=== PATIENT | female | born 1995 | race Hispanic/Latino ===

== ENCOUNTER 2019-07-17 12:19 | Outpatient (CLI) | payer OTHER ==
[2019-07-17 18:17] LABS: SARS-CoV-2 MS2 Positive; SARS-CoV-2 N Gene Negative; SARS-CoV-2 S Gene Negative; SARS-CoV-2 orf1ab Negative
== END 2019-07-17 12:20 | disposition home or self-care (01) ==
LOC: ERS 12:19
PROVIDERS: ATTEND Family Medicine
DX: Z20.828 Contact with and (suspected) exposure to other viral communicable diseases (principal)
CPT/HCPCS: 87635; U0003

== ENCOUNTER 2019-07-17 20:15 | Inpatient (IN) | payer OTHER, MEDICAID ==
[2019-07-17 21:11] VITALS: BMI 28.4
[2019-07-17] MEDS ORDERED: hydrALAZINE 20 MG/ML VIAL SLOW IVP PRN (21:50)
[2019-07-17] MEDS ORDERED: Diphenoxylate HCl/Atropine Tablet PO PRN (21:50)
[2019-07-17] MEDS ORDERED: Promethazine HCl 25 MG/ML VIAL IM PRN (21:50)
[2019-07-17] MEDS ORDERED: Carboprost 250 MCG/ML AMP IM PRN (21:50)
[2019-07-17] MEDS ORDERED: Lidocaine 1% (PF) 30 ML VIAL SC PRN (21:50)
[2019-07-17] MEDS ORDERED: Ondansetron PF 4 MG/2 ML Vial IVP PRN (21:50)
[2019-07-17] MEDS ORDERED: Docusate 100 MG CAP PO PRN (21:50)
[2019-07-17] MEDS ORDERED: HYDROcodone/Acetaminophen 5/325 mg Tablet PO PRN (21:50)
[2019-07-17] MEDS ORDERED: Ibuprofen 800 MG TAB PO PRN (21:50)
[2019-07-17] MEDS ORDERED: Misoprostol 200 MCG TAB PR PRN (21:50)
[2019-07-17] MEDS ORDERED: Methylergonovine 0.2 MG/ML VIAL IM PRN (21:50)
[2019-07-17] MEDS: Lactated Ringer's 1,000 ML IV SCH (22:00)
[2019-07-17] MEDS ORDERED: NS w/ Oxytocin 10 units 500 ML IV SCH (22:00)
[2019-07-17 22:10] LABS: Hemoglobin 12.1 g/dL (12.0-16.0); Mean Corpuscular HGB CONC 33.3 g/dL (32.0-36.0); Mean Corpuscular Hemoglobin 31.1 pg (27.0-31.0); Mean Corpuscular Volume 93.5 fL (78.0-98.0); Mean Platelet Volume 9.7 fL (7.4-10.4); Platelet Count 203 thou/uL (130-400); RBC Distribution Width 12.5 % (11.5-14.5); Red Blood Cell (RBC) Count 3.89 mill/uL (4.20-5.40); White Blood Cell (WBC) Count 10.4 thou/uL (4.8-10.8)
[2019-07-17] MEDS: Misoprostol 100 MCG TAB PO SCH (22:20)
[2019-07-17 22:48] LABS: HBSAg Index 0.16 S/CO (0-0.99); Hep B Surf Ag Non-Reactive S/CO (NonReactive); Syphilis Antibody Nonreactive (Nonreactive); Syphilis Antibody Index 0.03 S/CO (<1.00 Non-Reactive)
[2019-07-17] MEDS: NS w/ Oxytocin 10 units 500 ML IV SCH (23:36)
[2019-07-18] MEDS: Misoprostol 100 MCG TAB PO SCH (02:10)
[2019-07-18] MEDS: Butorphanol Tartrate 1 MG/ML VIAL SLOW IVP PRN ×3 (04:00→07:54)
[2019-07-18] MEDS: Lactated Ringer's 1,000 ML IV SCH ×3 (05:00→15:23)
[2019-07-18] MEDS ORDERED: Fentanyl 4 mcg/Bup 0.1% Cadd 100 ML ONE ×2 (08:59→15:15)
[2019-07-18] MEDS ORDERED: Lactated Ringer's 500 ML IV PRN (09:32)
[2019-07-18] MEDS ORDERED: Naloxone HCl 0.4 mg/ml Vial IVP PRN ×2 (09:32)
[2019-07-18] MEDS ORDERED: Promethazine HCl 25 MG/ML VIAL IM PRN ×2 (09:32→22:06)
[2019-07-18] MEDS ORDERED: Acetaminophen 325 MG TAB PO PRN (09:32)
[2019-07-18] MEDS ORDERED: diphenhydrAMINE 50 MG/ML VIAL IVP PRN (09:32)
[2019-07-18] MEDS ORDERED: EPHEDRINE 25 MG/5 ML SYRINGE SLOW IVP PRN (09:32)
[2019-07-18] MEDS ORDERED: Ondansetron PF 4 MG/2 ML Vial IVP PRN ×2 (09:32→22:06)
[2019-07-18] MEDS ORDERED: Fentanyl 4 mcg/Bupivacaine 0.1% Cassette 100 ML EPIDURAL SCH (09:45)
[2019-07-18] MEDS ORDERED: Communication Order-Pharmacy FS PRN (09:45)
[2019-07-18] MEDS ORDERED: Ampicillin 2 GM in Sodium Chloride 0.9% 100 ML IVPB SCH (15:00)
[2019-07-18] MEDS: Ampicillin 2 GM in Sodium Chloride 0.9% 100 ML IVPB SCH ×2 (15:21→21:36)
[2019-07-18] MEDS ORDERED: SODIUM CHLORIDE 0.9% IVPB SCH (16:00)
[2019-07-18] MEDS ORDERED: GENTAMICIN SULFATE IVPB SCH (16:00)
[2019-07-18 19:32] LABS: Actual Bicarbonate (HCO3a) 19.8 mEq/L (22-28); Base Excess (BEa) -7.5 mEq/L (-2.0 to +3.0)
[2019-07-18] MEDS: NS / Oxytocin 40 units/1000ml 1,000 ML IV PRN ×2 (20:22→21:41)
[2019-07-18] MEDS ORDERED: HYDROcodone/Acetaminophen 5/325 mg Tablet PO PRN ×2 (22:06)
[2019-07-18] MEDS ORDERED: Preparation H Ointment 28 GM TUBE PR PRN (22:06)
[2019-07-18] MEDS ORDERED: Lanolin Ointment 7 GM TUBE TOP PRN (22:06)
[2019-07-18] MEDS ORDERED: Milk Of Magnesia 30 ML UDCUP PO PRN (22:06)
[2019-07-18] MEDS ORDERED: diphenhydrAMINE 25 MG CAP PO PRN (22:06)
[2019-07-18] MEDS ORDERED: hydrALAZINE 20 MG/ML VIAL SLOW IVP PRN (22:06)
[2019-07-18] MEDS ORDERED: NS / Oxytocin 40 units/1000ml 1,000 ML IV SCH (22:06)
[2019-07-18] MEDS ORDERED: Bisacodyl 10 MG SUPP PR PRN (22:06)
[2019-07-18] MEDS: Ibuprofen 800 MG TAB PO SCH (22:42)
[2019-07-18] MEDS ORDERED: Witch Hazel-Glycerin 1 EACH JAR TOP PRN (22:43)
[2019-07-18] MEDS ORDERED: Docusate Calcium (SURFAK) 240 MG CAP PO SCH (23:00)
[2019-07-19] MEDS: NS w/ Oxytocin 10 units 500 ML IV SCH (00:30)
[2019-07-19] MEDS: Ibuprofen 800 MG TAB PO SCH ×3 (05:10→20:52)
[2019-07-19 06:12] LABS: Hemoglobin 8.9 g/dL (12.0-16.0); Mean Corpuscular Hemoglobin 31.2 pg (27.0-31.0); Mean Corpuscular Volume 94.6 fL (78.0-98.0); Platelet Count 160 thou/uL (130-400); RBC Distribution Width 12.7 % (11.5-14.5); Red Blood Cell (RBC) Count 2.86 mill/uL (4.20-5.40); White Blood Cell (WBC) Count 20.2 thou/uL (4.8-10.8)
[2019-07-19] MEDS ORDERED: Adacel (T-DAP) 0.5 ML SYRINGE IM ONE (09:00)
[2019-07-19] MEDS: Ferrous Sulfate 325 MG TAB PO SCH ×2 (09:54→18:07)
[2019-07-19] MEDS: Docusate Calcium (SURFAK) 240 MG CAP PO SCH ×2 (09:54→20:52)
[2019-07-19] MEDS: Prenatal Vitamin 1 TAB PO SCH (09:54)
[2019-07-19] MEDS ORDERED: Benzocaine-Menthol 82.5 ML CAN TOP PRN (12:42)
[2019-07-20] MEDS: Ibuprofen 800 MG TAB PO SCH ×2 (05:15→13:44)
[2019-07-20] MEDS: Docusate Calcium (SURFAK) 240 MG CAP PO SCH (07:26)
[2019-07-20] MEDS: Prenatal Vitamin 1 TAB PO SCH (07:26)
[2019-07-20] MEDS: Ferrous Sulfate 325 MG TAB PO SCH ×2 (07:27→13:45)
[2019-07-20 07:59] VITALS: BP 108/64; TEMP 97.9
== END 2019-07-20 19:05 | disposition home or self-care (01) | DRG 768 ==
LOC: L&D 20:15 → 3SW 07-18 23:29
PROVIDERS: ADMIT Family Medicine; ATTEND Family Medicine
PROC: 10E0XZZ Delivery of Products of Conception, External Approach (ICD-10-PCS; principal; 2019-07-18)
PROC: 0DQR0ZZ Repair Anal Sphincter, Open Approach (ICD-10-PCS; 2019-07-18)
PROC: 10907ZC Drainage of Amniotic Fluid, Therapeutic from Products of Conception, Via Natural or Artificial Opening (ICD-10-PCS; 2019-07-18)
PROC: 3E033VJ Introduction of Other Hormone into Peripheral Vein, Percutaneous Approach (ICD-10-PCS; 2019-07-18)
PROC: 3E0P7VZ Introduction of Hormone into Female Reproductive, Via Natural or Artificial Opening (ICD-10-PCS; 2019-07-18)
PROC: 0W8NXZZ Division of Female Perineum, External Approach (ICD-10-PCS; 2019-07-18)
DX: O48.0 Post-term pregnancy (principal); Z37.0 Single live birth; O70.20 Third degree perineal laceration during delivery, unspecified; O69.1XX0 Labor and delivery complicated by cord around neck, with compression, not applicable or unspecified; Z3A.40 40 weeks gestation of pregnancy
CPT/HCPCS: 36415; 51702; 82805; 85027; 86780; 86850; 86900; 86901; 87070; 87205; 87340; 87635; 88307; J0290; J0595; J1580; J2405; J2590; J3490; U0003

== ENCOUNTER 2020-11-01 21:09 | Inpatient (IN) | payer MEDICAID, SELFPAY ==
[2020-11-01 21:52] LABS: #Eosinphils 0.3 thou/uL (0.0-0.7); #Monocytes 0.6 thou/uL (0.11-0.59); #Neutrophils 4.9 thou/uL (1.40-6.50); %Basophils 0.4 % (0.0-1.0); %Eosinophils 3.6 % (0.0-10.0); %Lymphocytes 25.2 % (21.0-51.0); %Monocytes 7.6 % (0.0-10.0); %Neutrophils 63.2 % (42.0-75.0); Hemoglobin 12.7 g/dL (12.0-16.0); Mean Corpuscular Hemoglobin 30.5 pg (27.0-31.0); Mean Corpuscular Volume 87.2 fL (78.0-98.0); Mean Platelet Volume 7.5 fL (7.4-10.4); Platelet Count 320 thou/uL (130-400); RBC Distribution Width 12.3 % (11.5-14.5); Red Blood Cell (RBC) Count 4.15 mill/uL (4.20-5.40); White Blood Cell (WBC) Count 7.8 thou/uL (4.8-10.8)
[2020-11-01 21:58] LABS: Bacteria/HPF 3+ HPF (None Seen); Bilirubin Negative (Negative); Blood, Urine Negative (Negative); Clarity Turbid (Clear); Glucose, Urine (Dipstick) Normal (Negative); Ketone, Urine Negative (Negative); Leukocyte 500 Leu/uL (Negative); Nitrite Negative (Negative); Protein, Urine (Dipstick) 20 mg/dL (Neg-Trace); WBC/HPF Greater than 50 HPF (0-3)
[2020-11-01 22:03] LABS: Pregnancy Test - Urine (BHCG) Negative (Negative); Pregu Control Background? CLEAR/WHITE (CLR/WHITE); Pregu Control Bar Appear? YES (CONTROL BAR)
[2020-11-01 22:14] LABS: ALT (SGPT) 35 U/L (8-55); AST (SGOT) 55 U/L (5-34); Alkaline Phosphatase 153 U/L (40-110); Anion Gap 11 mmol/L (10-20); BUN (Urea Nitrogen) 14 mg/dL (7.0-18.7); Bilirubin, Total 0.4 mg/dL (0.2-1.2); Calc. Creatinine Clearance 0 mL/min (70-130); Calcium 9.1 mg/dL (7.8-10.44); Carbon Dioxide 26 mmol/L (22-29); Chloride 104 mmol/L (98-107); Globulin 3.2 g/dL (2.4-3.5); Glucose 108 mg/dL (70-105); Lipase 33 U/L (8-78); Potassium 3.3 mmol/L (3.5-5.1); Protein, Total 7.2 g/dL (6.0-8.3); Sodium 138 mmol/L (136-145)
[2020-11-01] MEDS ORDERED: Morphine 4 MG/ML VIAL ONE (23:10)
[2020-11-01] MEDS ORDERED: cefTRIAXone\\ROCEPHIN 1 GM VIAL ONE (23:11)
[2020-11-01] MEDS ORDERED: Ondansetron PF 4 MG/2 ML Vial ONE (23:11)
[2020-11-01] MEDS ORDERED: Ondansetron PF 4 MG/2 ML Vial IVP PRN (23:57)
[2020-11-01] MEDS ORDERED: Morphine 2 MG/ML VIAL SLOW IVP PRN (23:57)
[2020-11-01] MEDS ORDERED: Dextrose 5% in Water 1,000 ML IV PRN (23:57)
[2020-11-01] MEDS ORDERED: Dextrose 50% Abboject 50 ML SYRINGE SLOW IVP PRN (23:57)
[2020-11-02 01:57] VITALS: BMI 21.3
[2020-11-02] MEDS: Sodium Chloride 0.9% 1,000 ML IV SCH ×3 (01:58→20:51)
[2020-11-02 03:16] LABS: SARS-CoV-2 NAA Rapid Test DETECTED (NotDetected)
[2020-11-02] MEDS ORDERED: Potassium Chloride 40 MEQ in Premix Bag 1 BAG IVPB SCH (08:00)
[2020-11-02] MEDS: Famotidine 20 MG TAB PO SCH ×2 (08:15→20:50)
[2020-11-02] MEDS ORDERED: Nitrofurantoin Monohyd/M-Cryst 100 MG CAP PO SCH (09:00)
[2020-11-02] MEDS ORDERED: Potassium Chloride 20 MEQ in Premix Bag 1 BAG IVPB SCH (10:00)
[2020-11-02] MEDS ORDERED: Fentanyl 100 MCG/2 ML VIAL ONE ×2 (10:20→12:45)
[2020-11-02] MEDS ORDERED: Midazolam HCl 2 mg/2 ml Vial ONE (10:20)
[2020-11-02] MEDS ORDERED: Dexmedetomidine 200 MCG/2 ML VIAL ONE (10:21)
[2020-11-02] MEDS ORDERED: Phenylephrine 10 MG/ML VIAL ONE ×2 (10:21→10:22)
[2020-11-02] MEDS ORDERED: Bupivacaine 0.25% HCL 30 ML VIAL ONE (10:53)
[2020-11-02] MEDS ORDERED: Lidocaine 1% w/Epinephrine 1:100K 20 ML VIAL ONE (10:53)
[2020-11-02] MEDS ORDERED: Esmolol 100 MG/10 ML VIAL ONE (11:38)
[2020-11-02] MEDS ORDERED: Lidocaine 1% PF 5 ML VIAL ONE (11:38)
[2020-11-02] MEDS ORDERED: Rocuronium Bromide 10 MG/ML (10ML VIAL) ONE (11:38)
[2020-11-02] MEDS ORDERED: Ondansetron PF 4 MG/2 ML Vial ONE (11:38)
[2020-11-02] MEDS ORDERED: Ketorolac Tromethamine 30 MG/ML VIAL ONE (11:38)
[2020-11-02] MEDS ORDERED: PHENYLEPHRINE-NS 100 MCG/ML 10 ML SYRINGE ONE (11:38)
[2020-11-02] MEDS ORDERED: Dexamethasone 20 MG/5 ML VIAL ONE (11:38)
[2020-11-02] MEDS ORDERED: Glycopyrrolate 0.2 MG/ML 5 ML SYRINGE ONE (11:38)
[2020-11-02] MEDS ORDERED: Succinylcholine 200 MG/10 ml SYRINGE FS ONE (11:38)
[2020-11-02] MEDS ORDERED: PROPOFOL 200 MG/20 ML VIAL ONE (11:38)
[2020-11-02] MEDS ORDERED: Potassium Chloride 20 MEQ TAB PO SCH (12:00)
[2020-11-02] MEDS ORDERED: Promethazine HCl 25 MG/ML VIAL IVPB PRN (13:27)
[2020-11-02] MEDS ORDERED: Meperidine HCl/PF 25 MG/ML VIAL SLOW IVP PRN (13:27)
[2020-11-02] MEDS ORDERED: Promethazine HCl 25 MG/ML VIAL IM PRN (13:27)
[2020-11-02] MEDS ORDERED: Ondansetron HCl/PF 4 MG/2 ML Vial IVP PRN (13:27)
[2020-11-02] MEDS ORDERED: HYDROmorphone 2 MG/ML VIAL SLOW IVP PRN (13:27)
[2020-11-02] MEDS ORDERED: Sodium Chloride 0.9% 1,000 ML IV SCH (18:30)
[2020-11-02] MEDS ORDERED: Sodium Chloride 0.9% 500 ML IV SCH ×2 (20:30→21:15)
[2020-11-02] MEDS: Aspirin 81 mg Enteric Coated Tablet PO SCH (20:50)
[2020-11-03] MEDS ORDERED: traMADol HCl 50 MG TAB PO PRN (00:29)
[2020-11-03] MEDS ORDERED: Acetaminophen 500 MG TAB PO SCH ×2 (02:00→06:00)
[2020-11-03] MEDS ORDERED: Ketorolac Tromethamine 30 MG/ML VIAL IVP SCH ×2 (02:00→06:00)
[2020-11-03] MEDS: Acetaminophen 500 MG TAB PO SCH ×3 (02:18→15:51)
[2020-11-03 06:20] LABS: #Monocytes 0.7 thou/uL (0.11-0.59); #Neutrophils 7.7 thou/uL (1.40-6.50); %Basophils 0.1 % (0.0-1.0); %Eosinophils 0.1 % (0.0-10.0); %Monocytes 7.8 % (0.0-10.0); %Neutrophils 81.1 % (42.0-75.0); Hemoglobin 8.7 g/dL (12.0-16.0); Mean Corpuscular HGB CONC 34.9 g/dL (32.0-36.0); Mean Corpuscular Hemoglobin 31.1 pg (27.0-31.0); Mean Corpuscular Volume 89.3 fL (78.0-98.0); Mean Platelet Volume 7.9 fL (7.4-10.4); Platelet Count 312 thou/uL (130-400); RBC Distribution Width 12.4 % (11.5-14.5); Red Blood Cell (RBC) Count 2.78 mill/uL (4.20-5.40); White Blood Cell (WBC) Count 9.5 thou/uL (4.8-10.8)
[2020-11-03 06:37] LABS: Anion Gap 9 mmol/L (10-20); BUN (Urea Nitrogen) 5 mg/dL (7.0-18.7); Calc. Creatinine Clearance 137 mL/min (70-130); Calcium 8.1 mg/dL (7.8-10.44); Carbon Dioxide 21 mmol/L (22-29); Chloride 112 mmol/L (98-107); Glucose 106 mg/dL (70-105); Magnesium 1.9 mg/dL (1.6-2.6); Potassium 3.8 mmol/L (3.5-5.1); Sodium 138 mmol/L (136-145)
[2020-11-03] MEDS ORDERED: PHOS-NAK 1 PKT PACK PO SCH (09:15)
[2020-11-03] MEDS ORDERED: Calcium Chloride 13.6 MEQ in Sodium Chloride 0.9% 100 ML IVPB SCH (09:15)
[2020-11-03] MEDS: Ketorolac Tromethamine 30 MG/ML VIAL IVP SCH ×2 (09:47→15:52)
[2020-11-03] MEDS: Sodium Chloride 0.9% 1,000 ML IV SCH ×2 (09:47→17:28)
[2020-11-03] MEDS: Famotidine 20 MG TAB PO SCH (09:48)
[2020-11-03] MEDS: Aspirin 81 mg Enteric Coated Tablet PO SCH (09:48)
[2020-11-03 11:46] LABS: ALT (SGPT) 104 U/L (8-55); AST (SGOT) 64 U/L (5-34); Albumin 3.2 g/dL (3.5-5.0); Alkaline Phosphatase 120 U/L (40-110); Bilirubin, Direct 0.2 mg/dL (0.1-0.3); Bilirubin, Total 0.4 mg/dL (0.2-1.2); Protein, Total 5.5 g/dL (6.0-8.3)
[2020-11-03 18:38] VITALS: BP 95/59; TEMP 98.2
== END 2020-11-03 19:31 | disposition home or self-care (01) | DRG 417 ==
LOC: ERS 21:09 → SURG B 23:07
PROVIDERS: ADMIT Surgery; ATTEND Surgery
PROC: 8E0ZXY6 Isolation (ICD-10-PCS; 2020-11-01)
PROC: 0FT44ZZ Resection of Gallbladder, Percutaneous Endoscopic Approach (ICD-10-PCS; principal; 2020-11-02)
DX: K80.00 Calculus of gallbladder with acute cholecystitis without obstruction (principal); U07.1 COVID-19; N39.0 Urinary tract infection, site not specified; E87.6 Hypokalemia; K74.60 Unspecified cirrhosis of liver
CPT/HCPCS: 36415; 76705; 80048; 80053; 80076; 81003; 81015; 81025; 83690; 83735; 84100; 85025; 87086; 88304; 93005; 93010; 93970; 96365; 96375; J0696; J1100; J1885; J2250; J2270; J2370; J2405; J2704; J3010; J3480; J3490; J7050; S0020; U0002